=== PATIENT | male | born 1975 | race Caucasian/White ===

== ENCOUNTER 2017-05-10 10:18 | Emergency (ER) | payer OTHER ==
[~2017-05-10] VITALS: Ht 188 cm; Wt 161.0 kg
[2017-05-10] MEDS ORDERED: HYDROCHLOROTHIA25 M1 PO (10:29)
[2017-05-10 10:52] LABS: URINE BILIRUBIN - DIPSTICK NEGATIVE (NEG); URINE BLOOD NEGATIVE (NEG)
[2017-05-10 11:04] LABS: HEMOGLOBIN 15.7 g/dL (14.1-18.0); LYMPH % 23.1 % (10-50)
--- NOTE | 2017-05-10 11:49 | RADIOLOGY REPORT PS360 ---
CT ABD PELVIS W/ CONTRAST CLINICAL INDICATION: PERIUMBILICAL PAIN,ONSET 1 HOUR AGO ORDERING PHYSICIAN: Alexei Turpin MD PATIENT AGE: 41 years COMPARISON: None TECHNIQUE: Axial images obtained with sagittal and coronal reformats. PROCEDURE: Oral Contrast: None IV Contrast: 75 mL's of Isovue-370. FINDINGS: No acute finding in the lower chest. There are several isodense lesions of the liver the largest in the right hepatic lobe measuring 2.2 x 1.3 cm. This could be due to small cysts. Ultrasound may confirm. There is an additional 1 cm isodensity just superior to the gallbladder fossa at least 2 other small isodensity is in the left hepatic lobe. The gallbladder, spleen, and adrenal glands have an unremarkable appearance. Small focus of calcification is present in the central aspect of the pancreas and could even be vascular. There is a 3.5 similar left renal cyst. There is a 1.5 cm right renal cyst superiorly. No obstructing renal or ureteral calculi are evident.. Reported prior appendectomy. No intestinal obstruction or free air. There is a small umbilical hernia which contains fat. No evidence of diverticulitis. No intestinal obstruction or free air. No acute bony anomalies. IMPRESSION: 1. No acute finding. 2. Isodense hepatic lesions nonspecific possibly related to cyst. Consider outpatient ultrasound confirm cystic or solid nature. 3. Small bilateral renal cysts. 4. Small umbilical hernia containing fat
--- NOTE | 2017-05-10 12:09 | Emergency Room Report ---
History of Present Illness Time Seen by 1027 Presenting Problem in Triage Pt arrived:Walked Presenting Problem:LEFT SIDE UMBILICAL PAIN AND DISCOMOFRT Onset of symptoms date/time:/ or onset unknown for:MEDICAL HX UNKNOWN Treatment Prior to Arrival: PARTS ASSEMBLER Provided by: Sepsis Risk Assessment: Temp: 98.0 B/P: 132/76 MAP: 94 Pulse: 80 Resp: 18 Recent fever? N Clinical Suspician of Infection? N Mental Status: 1 - Regular (Normal Baseline) Sepsis Risk:Low Sepsis Risk Have you (or family members/close friends) recently traveled outside the [place]? N If Yes, where/when: Have you had exposure to infectious disease within the past month? TB? Other? Specify: Source patient, RN notes reviewed, family, RN/MD Exam Limitations no limitations Comment This is a 40-year-old male patient presenting to the emergency room with moderate to severe periumbilical pain after sneezing at home and developing severe pain. She has been told in the past that he will require umbilical hernia but he tried to put it off, hoping that he will not need any surgical intervention. Patient has any nausea, vomiting, fever or diarrhea. ALLERGIES Coded Allergies: No Known Allergies (05/10/17) Home Medications Reported Medications HYDROCHLOROTHIAZIDE (Hydrochlorothiazide) 25 MG PO DAILY #30 History Medical History General Hypertension? Yes Hernia? Yes Immunization Hx Ped.Immunizations UTD Yes DT/Tetanus 1-4 Years Ago Surgical Hx Previous Surgery?N Social History Smoking Hx Smoker: Never Smoker Tobacco: No Type N/A Are you/the child exposed to second-hand smoke: No Alcohol Alcohol: No Review of Systems All Other Systems Reviewed and Negative Gastrointestinal abdominal pain Physical Exam Vital Signs Vital Signs Date Time Temp Pulse Resp B/P Pulse O2 O2 Flow FiO2 Ox Delivery Rate 05/10 1236 79 18 121/75 98 05/10 1216 16 05/10 1026 98.0 80 18 132/76 98 General Appearance normal appearance, WD/WN, moderate distress Respiratory Status Yes: trachea midline, chest symmetrical, non tender chest. No: respiratory distress. Lung Sounds bilateral: normal breath sounds, lungs clear. Cardiovascular normal exam, regular rate/rhythm, no peripheral edema, no gallop, no JVD, no murmur, no rub, normal peripheral pulses Gastrointestinal normal bowel sounds, soft, no organomegaly, no rebound, tenderness (umbilical tenderness) Extremities non-tender, normal range of motion, normal inspection Neurologic alert, thread dresser II-XII nml as tested, normal exam, oriented x 3 Mental status normal mood/affect Skin intact, normal color, warm/dry Medical Decision Making LABS/Meds/Orders Pt receiving controlled substance in ED? Yes Fran was queried for this patient? No Reason not queried - hospital network issues Risks/benefits of using a controlled substance for treatment were discussed w/pt by me Comment 1205 - son just call Dr. Hill's office and they were able to find an opening in the schedule so that patient can be seen today, upon discharge from this department. Results/Orders Laboratory Tests 05/10/17 1040: Sodium 135 L, Potassium 3.1 L, Chloride 100, Carbon Dioxide 24, BUN 9, Creatinine 0.8, Estimated Creat Clear 271 H, Estimated GFR (MDRD) 106, Glucose 97, Calcium 9.3, Total Bilirubin 0.8, AST 25, ALT 26, Alkaline Phosphatase 126 H, Total Protein 8.0, Albumin 3.8, Globulin 4.2 H, Albumin/Globulin Ratio 0.9 L, Amylase 34, Lipase 98, WBC 8.5, RBC 5.48, Hgb 15.7, Hct 46.2, MCV 84.2, RDW 12.4, Plt Count 269, MPV 8.0, Gran % 67.6, Gran # 5.8, Lymphocytes % 23.1, Monocytes % 6.6, Eosinophils % 1.7, Basophils % 1.0, Lymphocytes # 2.0, Monocytes # 0.6, Eosinophils # 0.2, Basophils # 0.1, PUBS MCHC 34.0, MCH 28.7, Urine Color YELLOW, Urine Appearance CLEAR, Urine pH 7.5, Ur Specific Nelson 1.020, Urine Protein NEGATIVE, Urine Ketones NEGATIVE, Urine Blood NEGATIVE, Urine Nitrate NEGATIVE, Urine Bilirubin NEGATIVE, Urine Urobilinogen 0.2, Ur Leukocyte Esterase NEGATIVE, Urine RBC OCC, Urine WBC OCC, Urine Bacteria TRACE, Urine Glucose NEGATIVE Current Medication Orders Sig/Delia Start time Last Medication Dose Route Stop Time Status Admin Hydromorphone HCl 0 .STK-MED ONE 05/10 1212 DC .ROUTE Ondansetron HCl 0 .STK-MED ONE 05/10 1212 DC .ROUTE Sodium Chloride 1,000 ML .STK-MED ONE 12/12 1212 DC IV Iopamidol 75 ML ONCE ONE 05/10 1130 DC IV 05/10 1131 Sodium Chloride 10 ML ONCE ONE 05/10 1130 DC IV 05/10 1131 Hydromorphone HCl 1 MG ONCE ONE 05/10 1030 DC 12/ IV 05/10 1031 1216 Ondansetron HCl 4 MG ONCE ONE 05/10 1030 DC 05/10 IV 05/10 1031 1216 Sodium Chloride 10 ML PRN PRN 05/10 1030 DCD IV 05/11 1028 Sodium Chloride 1,000 ML .Q1H1M 05/10 1030 DC 12 IV 05/10 1130 1216 Sodium Chloride 10 ML PRN PRN 05/10 1030 DCD IV 05/11 1029 Orders Procedure Date/time Status DIET-NOTHING BY MOUTH 05/[address] ABD/PELVIS REQ 05/10 1029 Complete IV SALINE LOCK 05/10 1028 Active URINALYSIS/COMPLETE 05/10 1028 Complete LIPASE 05/10 1028 Complete CBC WITH AUTO DIFF 05/10 1028 Complete CHEM 12 PROFILE 05/10 1028 Complete AMYLASE 05/10 1028 Complete XRAY/CT/US XRAY/CT/US CT abdomen, pelvis CT interpretation by discussed w/radiologist CT Results umbilical hernia containing fat only Departure Departure Time of Disposition 1208 Disposition DC Home or Self Care(routine) Clinical Impression Primary Impression: Umbilical hernia Qualifiers: Obstruction and gangrene presence: with obstruction but without gangrene Qualified Code: K42.0 - Umbilical hernia with obstruction, without gangrene Condition STABLE Referrals Liz Mcclain (Family) JAYDON HILL MD B: Today after leaving ER Patient Instructions DI for Ventral Hernia Additional Instructions No weight lifting, over 5 pounds. Please attempt to lose some weight. Follow-up with Dr. Hill for surgical evaluation of elective umbilical hernia repair. Please follow-up with your family doctor regarding your additional CT scan findings (liver nodules). Discharge Counseling Counseled pt/family regarding diagnosis, test results, R/B of controlled subst., medications/RX, home care, follow up needs Comment No weight lifting, over 5 pounds. Please attempt to lose some weight. Follow-up with Dr. Hill for surgical evaluation of elective umbilical hernia repair. Please follow-up with your family doctor regarding your additional CT scan findings (liver nodules). Prescriptions Current Visit Scripts OXYCODONE HCL/ACETAMINOPHEN (Percocet 10-325 MG Tablet) 1 TAB PO QIDP PRN pain #10 TAB ED Critical Care Critical Care No at 2007
[2017-05-10] MEDS ORDERED: PERCOCET1 TA1 PO (12:18)
--- OUTSIDE RECORDS SUMMARY | 2017-05-10 12:19 | External Medical Summary Rpt | CCD ---
Author Author , MELI GARRISON Address Unknown Phone [email or web address] Care Team Providers Care Log Truck Driver Name Role Phone SILVIANO RIDER Unavailable Unavailable DEBBIE LEWIS, SILVIANO Unavailable Unavailable DEBBIE MEDINA, Unavailable Unavailable DAMIAN MEDINA [facility], Unavailable Unavailable [facility] Unavailable Unavailable CENTER, [facility] [employer], Unavailable Unavailable [facility], Unavailable Unavailable [facility], Unavailable Unavailable [facility], Unavailable Unavailable [facility] Purpose Continuity of Care Document - 07-10-2013 through 2016 Problems Code Diagnosis DOS Provider Status 81047 OBESITY, 02-14-2014 [facility] UNSPECIFIED PRIMARY CARE CENTER 4619 ACUTE 02-14-2014 [facility] SINUSITIS, PRIMARY UNSPECIFIED CARE CENTER 06542 OBSTRUCTIVE 12-07-2013 [facility], SLEEP INC APNE[facility] 70956 HYPERSOMNIA 11-27-2013 [facility] WITH SLEEP PRIMARY [facility] CARE CENTER UNSPECIFIED 39341 UNSPECIFIED 11-02-2013 [facility] 4019 UNSPECIFIED 09-18-2013 SILVIANO LEWIS ESSENTIAL HYPERTENSIO N 2720 PURE 07-10-2013 [facility] TEROLEMIA Procedures Procedure DOS Code Location Performer Comment CONTINUOU E0601 NICHELLE, LINCARE, S 4 INC INC POSITIVE AIRWAY PRESSURE DEVICE CONTINUOU E0601 [facility] S 4 INC INC POSITIVE AIRWAY PRESSURE DEVICE FILTER A7038 NICHELLE STEWARD, DISPBL 4 INC INC USED W/POS ARWAY PRESSURE DEVICE CONTINUOU E0601 NICHELLE, TREVINARE, S 4 INC INC POSITIVE AIRWAY PRESSURE DEVICE NASL A7034 NICHELLE STEWARD, INTRFCE 4 INC INC POS ARWAY PRSS DEVC W/WO HEAD STRAP HEADGEAR A7035 NICHELLE STEWARD, USED 4 INC INC W/POSITIV E AIRWAY PRESSURE DEVICE CHINSTRAP A7036 NICHELLE STEWARD, USED 4 INC INC W/POSITIV E AIRWAY PRESSURE DEVICE TUBING A7037 NICHELLE STEWARD, USED WITH 4 INC INC POSITIVE AIRWAY PRESSURE DEVICE HUMDIFIR E0562 NICHELLE STEWRAD, HEATED 4 INC INC USED W/POS ARWAY PRESSURE DEVICE POLYSOM 50991 DAMIAN SALGADO 6/>YRS 4 CAROL CAROL SLEEP W/CPAP 4/> ADDL ANGELITO ATTND POLYSOM 98256 SHRADDHA LLANES 6/>YRS 4 CO [facility] W/CPAP 4/> ADDL ANGELITO ATTND COLLECTIO 99974 SILVIANO Crystal VENOUS 4 BET BET BLOOD VENIPUNCT URE [facility] 74173 [facility] SIVE 4 DIAGNOSTI DIAGNOSTI METABOLIC CS CS PANEL BLOOD 49583 [facility] COUNT 4 DIAGNOSTI DIAGNOSTI COMPLETE CS CS AUTO&AUTO DIFRNTL WBC LIPID 43468 [facility] PANEL 4 DIAGNOSTI DIAGNOSTI CS CS Encounters Encounter Start End Date Code Location Performer Type Date OFFICE 52905 [facility] GAMEZPATIEN 4 4 PRIMARY BET T VISIT CARE 15 CENTER MINUTES OFFICE 97475 MARGARET GAMEZPATIEN 4 4 PRIMARY BET T VISIT CARE 15 CENTER MINUTES [facility] LLANES - 4 4 [facility] T OFFICE 44338 SILVIANO GAMEZPATIEN 4 4 BET BET T VISIT 15 MINUTES OFFICE 33693 SILVIANO GAMEZPATIEN 4 4 BET BET T VISIT 15 MINUTES
--- OUTSIDE RECORDS SUMMARY | 2017-05-10 12:19 | External Medical Summary Rpt | CCD ---
Author Author , MELI GARRISON Address Unknown Phone [email or web address] Care Team Providers Care Tool Designer Name Role Phone SILVIANO RIDER Unavailable Unavailable DEBBIE LEWIS, SILVIANO Unavailable Unavailable DEBBIE MEDINA, Unavailable Unavailable DAMIAN MEDINA [facility], Unavailable Unavailable [facility] Unavailable Unavailable CENTER, [facility] [employer], Unavailable Unavailable [facility], Unavailable Unavailable [facility] [facility], Unavailable Unavailable [facility], Unavailable Unavailable [facility] Purpose Continuity of Care Document - 07-10-2013 through 2016 Problems Code Diagnosis DOS Provider Status 95271 OBESITY, 02-14-[address] [facility] UNSPECIFIED PRIMARY CARE CENTER 4619 ACUTE 02-14-[address] [facility] SINUSITIS, PRIMARY UNSPECIFIED CARE CENTER 79533 OBSTRUCTIVE 12-07-2013 [facility], SLEEP INC [facility] 72766 HYPERSOMNIA 11-27-[address] [facility] WITH SLEEP PRIMARY [facility] CARE CENTER UNSPECIFIED 67256 UNSPECIFIED 11-02-2013 [facility] 4019 UNSPECIFIED 09-18-2013 SILVIANO LEWIS ESSENTIAL HYPERTENSIO N 2720 PURE 07-10-2013 [facility] TEROLEMIA Procedures Procedure DOS Code Location Performer Comment CONTINUOU E0601 NICHELLE, LINCARE, S 4 INC INC POSITIVE AIRWAY PRESSURE DEVICE CONTINUOU E0601 [facility], S 4 INC INC POSITIVE AIRWAY PRESSURE [...] POSITIVE AIRWAY PRESSURE DEVICE HUMDIFIR E0562 NICHELLE STEWARD, HEATED 4 INC INC USED W/POS ARWAY PRESSURE DEVICE POLYSOM 31567 DAMIAN SALGADO 6/>YRS 2 CAROL CAROL SLEEP W/CPAP 4/> ADDL ANGELITO ATTND POLYSOM 69181 SHRADDHA LLANES 6/>YRS 4 CO [facility] W/CPAP 4/> ADDL ANGELITO ATTND COLLECTIO 64870 SILVIANO Crystal VENOUS 4 BET BET BLOOD VENIPUNCT URE [facility] 97365 [facility] SIVE 4 DIAGNOSTI DIAGNOSTI METABOLIC CS CS PANEL BLOOD 58764 [facility] COUNT 4 DIAGNOSTI DIAGNOSTI COMPLETE CS CS AUTO&AUTO DIFRNTL WBC LIPID 20110 [facility] PANEL 4 DIAGNOSTI DIAGNOSTI CS CS Encounters Encounter Start End Date Code Location Performer Type Date OFFICE 37279 MARGARET GAMEZPATIEN 4 4 PRIMARY BET T VISIT CARE 15 CENTER MINUTES OFFICE 88494 MARGARET GAMEZPATIEN 4 4 PRIMARY BET T VISIT CARE 15 CENTER MINUTES [facility] LLANES - 4 4 [facility] T OFFICE 76731 SILVIANO GAMEZPATIEN 4 4 BET BET T VISIT 15 MINUTES OFFICE 28971 SILVIANO GAMEZPATIEN 4 4 BET BET T VISIT 15 MINUTES
--- OUTSIDE RECORDS SUMMARY | 2017-05-10 12:20 | External Medical Summary Rpt ---
Author Author MELI Archibald, [employer] Organization [employer] Address Unknown Phone Unavailable
--- OUTSIDE RECORDS SUMMARY | 2017-05-10 12:20 | External Medical Summary Rpt | CCD ---
Author Author , MELI GARRISON Address Unknown Phone [email or web address] Team Providers Care Acute Care Certified Nursing Assistant Name Role Phone SILVIANO RIDER Unavailable Unavailable SILVIANO HAYS Unavailable Unavailable DEBBIE MEDINA, Unavailable Unavailable DAMIAN MEDINA [facility], Unavailable Unavailable [facility] Unavailable Unavailable [place], Unavailable Unavailable [facility], Unavailable Unavailable [facility] [facility], Unavailable Unavailable [facility], Unavailable Unavailable [facility] Purpose Continuity of Care Document - 07-10-2013 through 2016 Problems Code Diagnosis DOS Provider Status 64568 OBESITY, 02-14-2014 [facility] UNSPECIFIED PRIMARY CARE CENTER 4619 ACUTE 02-14-2014 [facility] SINUSITIS, PRIMARY UNSPECIFIED CARE CENTER 05262 OBSTRUCTIVE 12-07-2013 [facility], SLEEP INC [facility] 78682 HYPERSOMNIA 11-27-2013 [facility] WITH SLEEP PRIMARY [facility] CARE CENTER UNSPECIFIED 06718 UNSPECIFIED 11-02-2013 [facility] SLEEP [facility] AP[facility] 4019 UNSPECIFIED 09-18-2013 SILVIANO LEWIS ESSENTIAL HYPERTENSIO N 2720 PURE 07-10-2013 [facility] TEROLEMIA Procedures Procedure DOS Code Location Performer Comment CONTINUOU E0601 NICHELLE STEWARD, S 4 INC INC POSITIVE AIRWAY PRESSURE DEVICE CONTINUOU E0601 NICHELLE STEWARD, S 4 INC INC POSITIVE AIRWAY PRESSURE DEVICE TUBING A7037 NICHELLE STEWARD, USED WITH 4 INC INC POSITIVE AIRWAY PRESSURE DEVICE NASL A7034 NICHELLE STEWARD, INTRFCE 4 INC INC POS ARWAY PRSS DEVC W/WO HEAD STRAP HEADGEAR A7035 NICHELLE STEWARD, USED 4 INC INC W/POSITIV E AIRWAY PRESSURE DEVICE CHINSTRAP A7036 NICHELLE STEWARD, USED 4 INC INC W/POSITIV E AIRWAY PRESSURE DEVICE HUMDIFIR E0562 NICHELLE STEWARD, HEATED 4 INC INC USED W/POS ARWAY PRESSURE DEVICE FILTER A7038 NICHELLE STEWARD, DISPBL 4 INC INC USED W/POS ARWAY PRESSURE DEVICE CONTINUOU E0601 NICHELLE STEWARD, S 4 INC INC POSITIVE AIRWAY PRESSURE DEVICE POLYSOM 29539 DAMIAN SALGADO 6/>YRS 4 CAROL CAROL SLEEP W/CPAP 4/> ADDL ANGELITO ATTND POLYSOM 39163 SHRADDHA LLANES 6/>YRS 4 CO [facility] W/CPAP 4/> ADDL ANGELITO ATTND COMPREHEN 59930 [facility] SIVE 4 DIAGNOSTI DIAGNOSTI METABOLIC CS CS PANEL COLLECTIO 27827 SILVIANO Crystal VENOUS 4 BET BET BLOOD VENIPUNCT URE LIPID 51339 [facility] PANEL 4 DIAGNOSTI DIAGNOSTI CS CS BLOOD 65324 [facility] COUNT 4 DIAGNOSTI DIAGNOSTI COMPLETE CS CS AUTO&AUTO DIFRNTL WBC Encounters Encounter Start End Date Code Location Performer Type Date OFFICE 59059 MARGARET FUNESEN 4 4 PRIMARY BET T VISIT CARE 15 CENTER MINUTES OFFICE 79150 MARGARET SHORE OUTPATIEN 4 4 PRIMARY BET T VISIT CARE 15 CENTER [facility] LLANES - 4 4 [facility] T OFFICE 20113 SILVIANO GAMEZPATIEN 4 4 BET BET T VISIT 15 MINUTES OFFICE 91920 SILVIANO GAMEZPATIEN 4 4 BET BET T VISIT 15 MINUTES
--- OUTSIDE RECORDS SUMMARY | 2017-05-10 12:20 | External Medical Summary Rpt | CCD ---
Demographics Preferred Language Togolese Marital Status Unknown Congregational Affiliation Unknown Race Unknown Ethnic Group Unknown Author Author , MELI GARRISON Address Unknown Phone [email or web address] Immunization Name Date Rout CVX Reac Dose Comm Prov Is Faci e tion ent ider Refu lity Give sed n Hep 06-2 43 999 Hist H201 No H201 B, 7-19 oric adul 97 al t Info rmat ion - Sour ce Unsp ecif ied Td 03-0 9 999 Hist H201 No H201 (tayler 5-19 oric lt), 97 al Info adso rmat rbed ion - Sour ce Unsp ecif ied Hep 01-2 43 999 Hist H201 No H201 B, 1-19 oric adul 97 al t Info rmat ion - Sour ce Unsp ecif ied Hep 12-1 43 999 Hist H201 No H201 B, 9-19 oric adul 96 al t Info rmat ion - Sour ce Unsp ecif ied
--- OUTSIDE RECORDS SUMMARY | 2017-05-10 12:20 | External Medical Summary Rpt | CCD ---
Author Author , MELI GARRISON Address Unknown Phone [email or web address] Team Providers Care Theatre Director Name Role Phone SILVIANO RIDER Unavailable Unavailable SILVIANO HAYS Unavailable Unavailable DEBBIE MEDINA, Unavailable Unavailable DAMIAN MEDINA [facility], Unavailable Unavailable [facility] Unavailable Unavailable [place], [facility], Unavailable Unavailable [facility], Unavailable Unavailable [facility], Unavailable Unavailable [facility], Unavailable Unavailable [facility] Purpose Continuity of Care Document - 07-10-2013 through 2016 Problems Code Diagnosis DOS Provider Status 77234 OBESITY, 02-14-2014 [facility] UNSPECIFIED PRIMARY CARE CENTER 4619 ACUTE 02-14-2014 [facility] SINUSITIS, PRIMARY UNSPECIFIED CARE CENTER 77329 OBSTRUCTIVE 12-07-2013 [facility] SLEEP INC [facility] 75208 HYPERSOMNIA 11-27-2013 [facility] WITH SLEEP PRIMARY [place] CARE CENTER UNSPECIFIED 04919 UNSPECIFIED 11-02-2013 [facility] SLEEP [facility] 4019 UNSPECIFIED 09-18-2013 SILVIANO [...] INC INC POSITIVE AIRWAY PRESSURE DEVICE POLYSOM 40447 DAMIAN SALGADO 6/>YRS 4 CAROL CAROL SLEEP W/CPAP 4/> ADDL ANGELITO ATTND POLYSOM 04969 SHRADDHA LLANES 6/>YRS 4 CO [facility] W/CPAP 4/> ADDL ANGELITO ATTND COMPREHEN 92219 [facility] SIVE 4 DIAGNOSTI DIAGNOSTI METABOLIC CS CS PANEL COLLECTIO 85234 SILVIANO Crystal VENOUS 4 BET BET BLOOD VENIPUNCT URE LIPID 25248 [facility] PANEL 4 DIAGNOSTI DIAGNOSTI CS CS BLOOD 06513 [facility] COUNT 4 DIAGNOSTI DIAGNOSTI COMPLETE CS CS AUTO&AUTO DIFRNTL WBC Encounters Encounter Start End Date Code Location Performer Type Date OFFICE 61330 MARGARET FUNESEN 4 4 PRIMARY BET T VISIT CARE 15 CENTER MINUTES OFFICE 66071 MARGARET SHORE OUTPATIEN 4 4 PRIMARY BET T VISIT CARE [address] [facility] LLANES - 4 4 [facility] T OFFICE 55944 SILVIANO GAMEZPATIEN 4 4 BET BET T VISIT 15 MINUTES OFFICE 95462 SILVIANO GAMEZPATIEN 4 4 BET BET T VISIT 15 MINUTES
--- OUTSIDE RECORDS SUMMARY | 2017-05-10 12:20 | External Medical Summary Rpt | CCD ---
Demographics Preferred Language Macanese Marital Status Unknown Muslim Affiliation Unknown Race Unknown Ethnic Group Unknown Author Author , MELI GARRISON Address Unknown Phone [email or web address] Immunization Name Date Rout CVX Reac Dose [...]
[2017-05-10 12:36] VITALS: BP 121/75
== END 2017-05-10 12:37 | disposition home or self-care (01) ==
LOC: ER 10:18
PROVIDERS: Emergency Medicine
DX: K42.0 Umbilical hernia with obstruction, without gangrene (principal)
CPT/HCPCS: J2405